=== PATIENT | female | born 1985 | race Caucasian/White ===

== ENCOUNTER 2016-09-20 16:59 | Emergency (ER) | payer MEDICAID, OTHER ==
[~2016-09-20] VITALS: Ht 147.3 cm; Wt 61.2 kg
--- NOTE | 2016-09-20 18:13 | ED EENT ---
History of Present Illness General Chief Complaint: Oral/Throat Problems Stated Complaint: TONGUE PIERCING/BLEEDING/SWELLING/PAIN Nursing Triage Note: PT REPORTS SHE GOT HER TONGUE PIERCED YESTERDAY AND IS HAVING BLEEDING AND INCREASED SWELLING AND PAIN. SHE REPORTS SHE HAS BEEN USING MOUTH WAS AND SALT WATER SWISHES DIRECTED. Source: patient Exam Limitations: no limitations History of Present Illness Time seen by provider: 17:53 Initial Comments 31-year-old female patient presents to the emergency department with complaints of swelling, bleeding, and pain of the tongue. patient reports having the tongue pierced yesterday. Timing/Duration: abrupt Location: other (tongue) Prearrival Treatment: over the counter meds (aleve at 0800 this AM) Modifying Factors: Worse With Other (no improvement with aleve) Allergies and Home Medications Allergies Coded Allergies: Penicillins (Verified Allergy, Unknown, 09/20/16) Home Medications Chlorhexidine Gluconate 473 Ml Mouthwash, 473 ML MM UD, #1 Ref 0 Prescribed by: DEBI MILAN on 09/20/16 182 Clindamycin HCl 300 Mg Capsule, 300 MG PO QID, #28 Ref 0 Prescribed by: DEBI MILAN on 09/20/16 1825 Tramadol HCl 50 Mg Tablet, 50 MG PO Q4H PRN for pain, #14 Ref 0 Prescribed by: DEBI MILAN on 09/20/165 Review of Systems Constitutional: No chills, No fever, No malaise Eyes: No Symptoms Reported Ears: No Symptoms Reported Nose: no symptoms reported Mouth: see HPI Throat: denies pain, denies swelling, denies painful swallowing, denies difficulty with fluids Respiratory: no symptoms reported Cardiovascular: no symptoms reported Skin: no symptoms reported Neurological: No Symptoms Reported All Other Systems Reviewed Negative Unless Noted: Yes (Negative excepted noted.) Past Timxdsy-Ggxoxd-Nzcska Hx Patient Social History Alcohol Use: Occasionally Uses Recreational Drug Use: No Smoking Status: Current Everyday Smoker Type Used: Cigarettes 2nd Hand Smoke Exposure: Yes Recent Foreign Travel: No Contact w/Someone Who Travel: No Recent Infectious Disease Expo: No Recent Hopitalizations: No Seasonal Allergies Seasonal Allergies: No Surgeries HX Surgeries: Yes Surgeries: Orthopedic Respiratory Hx Respiratory Disorders: No Cardiovascular Hx Cardiac Disorders: No Neurological Hx Neurological Disorders: No HEENT HX ENT Disorders: No Reviewed Nursing Assessment Reviewed/Agree w Nursing PMH: Yes Family Medical History Significant Family History: No Pertinent Family Hx Physical Exam Vital Signs Vital Sign - Last 12Hours 09/20/16 17:34 Temp 97.2 Pulse 72 Resp 16 B/P (MAP) 114/76 Pulse Ox 97 O2 Delivery Room Air General Appearance: WD/WN, no apparent distress Eyes: bilateral eye EOMI, bilateral eye PERRL, bilateral eye normal inspection Nose: normal inspection Mouth/Throat: pharynx normal, No excessive drooling, No mandibular swelling, No maxillary swelling, other (stud noted in the tongue. mild swelling and tenderness of the tongue. a small piece of tissue is attached from the tongue to the stud.) Neck: non-tender, full range of motion, supple, normal inspection Neurologic/Psychiatric: alert, normal mood/affect, oriented x 3 Skin: normal color, warm/dry Additional Procedures : Progress A small piece of tissue was removed from the piercing and tongue using forceps and suture scissors. No bleeding noted. Patient tolerated the procedure well. Progress/Results/Core Measures Results/Orders My Orders Orders - DEBI MILAN Clindamycin Capsule (Cleocin Capsule) (09/20/16 18:30) Ibuprofen Tablet (Motrin Tablet) (09/20/16 18:27) Rx-Tramadol Hcl (Rx-Ultram) (09/20/16 18:27) Vital Signs/I&O Blood Pressure Mean: 89 Departure Communication Progress Notes Patient seen and evaluated. Tissue removed from the tongue and piercing. Patient is able to swallow her own secretions without difficulty. Patient was able to take medications as well as fluids in the emergency department without difficulty. Proceed with discharge to home. Impression Impression: Primary Impression: Pierced tongue infection Disposition: 01 HOME, SELF-CARE Condition: Improved Departure-Patient Inst. Decision time for Depature: 18:12 Referrals: NO,LOCAL PHYSICIAN (PCP/Family) Primary Care Physician Patient Instructions: NO INSTRUCTIONS GIVEN Add. Discharge Instructions: All discharge instructions reviewed with patient and/or family. Voiced understanding. Medications as instructed. Soft diet. Continue good hygiene habits. Rinse mouth after each meal. Consider removing the tongue stud. Follow-up with your family practitioner for recheck in the next 1-2 days, call for appointment time tomorrow morning. Return to the emergency department for worsened pain, swelling, difficulty swallowing, fever, drainage, or any other concerns. Scripts Chlorhexidine Gluconate (Peridex) 473 Ml Mouthwash 473 ML MM UD, #1 EA 0 Refills Prov: DEBI MILAN 09/20/16 Tramadol HCl (Tramadol HCl) 50 Mg Tablet 50 MG PO Q4H Y for pain, #14 TAB 0 Refills Prov: DEBI MILAN 09/20/16 Clindamycin HCl (Clindamycin HCl) 300 Mg Capsule 300 MG PO QID, #28 CAP 0 Refills Prov: DEBI MILAN 09/20/16 Work/School Note: Local Medical Staff Listing DEBI MILAN Sep 20, 2016 18:13
[2016-09-20] MEDS ORDERED: TRAM50TA2 PO (18:25)
[2016-09-20] MEDS ORDERED: CLIN300C11 PO (18:25)
[2016-09-20] MEDS ORDERED: CHLO473M4 MM (18:25)
[2016-09-20] MEDS ORDERED: IBUPROFEN 800 MG (MOTRIN) TAB PO STA (18:27)
[2016-09-20] MEDS ORDERED: RX-TRAMADOL 50 MG (ULTRAM) TAB PPK#4 PO STA (18:27)
[2016-09-20] MEDS ORDERED: CLINDAMYCIN 150 MG (CLEOCIN) CAP PO ONE (18:30)
[2016-09-20 18:45] VITALS: BP 114/76
== END 2016-09-20 18:45 | disposition home or self-care (01) ==
LOC: ER 17:02
DX: T81.4XXA Infection following a procedure, initial encounter (principal); F17.210 Nicotine dependence, cigarettes, uncomplicated; Z98.890 Other specified postprocedural states
CPT/HCPCS: 99282; 99283

== ENCOUNTER → 2018-12-02 | Outpatient (CLI) | payer MEDICAID ==
[~2018-12-02] MED LIST: CHLO473M4 MM; CLIN300C11 PO; TRAM50TA2 PO
--- NOTE | 2018-12-02 14:43 | Diagnostic Imaging Report ---
PROCEDURE: MRI lumbar spine. TECHNIQUE: Multiplanar, multisequence MRI of the lumbar spine was performed without contrast. INDICATION: Low back pain. COMPARISON: No prior studies are available for comparison. FINDINGS: Curvature and alignment of the lumbar spine is normal. Vertebral body heights and marrow signal intensity are unremarkable. No compression fracture or geographic marrow lesion is seen. There is some loss of height and signal intensity to the L5-S1 disc, compatible with degenerative disc disease. The conus is unremarkable at the L1 level. L1-L2: Central canal and neuroforamina are widely patent. L2-L3: Central canal and neuroforamina are widely patent. L3-L4: Central canal and neuroforamina are widely patent. L4-L5: A broad-based annular bulging is seen, slightly asymmetric to the right posterolateral region. No central canal narrowing is seen but there is some [id number] narrowing of the right neuroforamen and right lateral recess. Left neuroforamen is patent. L5-S1: Broad-based disc bulging is noted, slightly asymmetric to the right. This does result in right lateral recess narrowing as well as moderate right neuroforaminal narrowing. Left neuroforamen and central canal are patent. Paraspinous tissues are unremarkable. IMPRESSION: Lower lumbar disc bulging, resulting in right lateral recess and right neuroforaminal narrowing at the L4-L5 and L5-S1 levels, as described. No central canal stenosis is detected. Dictated by: Dictated on workstation # [id number]
== END ==
LOC: RAD 13:41
PROVIDERS: ATTEND Physician Assistant
DX: Z01.419 Encounter for gynecological examination (general) (routine) without abnormal findings (principal); M51.16 Intervertebral disc disorders with radiculopathy, lumbar region; M48.07 Spinal stenosis, lumbosacral region
CPT/HCPCS: 72148

== ENCOUNTER 2019-02-07 11:46 | Emergency (ER) | payer MEDICAID ==
[~2019-02-07] VITALS: Ht 147 cm; Wt 67.9 kg
[2019-02-07] MEDS ORDERED: CYCL10TA9 (11:59)
--- NOTE | 2019-02-07 12:00 | ED Back Pain ---
General Chief Complaint: Back Problems Stated Complaint: BACK PAIN Source of Information: Patient Exam Limitations: No Limitations History of Present Illness Date Seen by Provider: Feb 07, 2019 Time Seen by Provider: 11:57 Initial Comments To ER with reports of mid thoracic back pain that began suddenly this morning when she bent forward to pickling solution maker something out of the laundry basket, she felt a popping sensation in her back. She is unable to twist or turn without severe pain in the mid back. The pain does not radiate. She is ambulatory into the emergency room. She was seen at an urgent care this morning and given a prescription for something but she hasn't filled it yet. Location: Paraspinous Muscles Timing/Duration: 1-2 Days Severity: Moderate Pain/Injury Location: Back Associated Symptoms: denies symptoms Allergies and Home Medications Allergies Coded Allergies: Penicillins (Verified Allergy, Unknown, 09/20/16) Home Medications Chlorhexidine Gluconate 473 Ml Mouthwash, 473 ML MM UD Prescribed by: DEBI MILAN on 09/20/161824 Clindamycin HCl 300 Mg Capsule, 300 MG PO QID Prescribed by: DEBI MILAN on 09/20/161824 Tramadol HCl 50 Mg Tablet, 50 MG PO Q4H PRN for pain Prescribed by: DEBI MILAN on 09/20/161824 Patient Home Medication List Home Medication List Reviewed: Yes Review of Systems Constitutional: see HPI EENTM: see HPI Respiratory: no symptoms reported Cardiovascular: no symptoms reported Genitourinary: no symptoms reported Musculoskeletal: see HPI, back pain Skin: no symptoms reported Psychiatric/Neurological: No Symptoms Reported Past Qpxqrdt-Brccok-Bybkcp Hx Patient Social History Type Used: Cigarettes 2nd Hand Smoke Exposure: Yes Recent Foreign Travel: No Contact w/Someone Who Travel: No Recent Hopitalizations: No Seasonal Allergies Seasonal Allergies: No Past Medical History Surgeries: Yes (OVARY REMOVED) Orthopedic Respiratory: No Cardiac: No Neurological: No Genitourinary: No Gastrointestinal: No Musculoskeletal: No Endocrine: No HEENT: No Cancer: No Family Medical History No Pertinent Family Hx Physical Exam Vital Signs Capillary Refill : Height, Weight, BMI Height: 4'10.00" Weight: 135lbs. oz. 61.856066xf; BMI Method:Stated General Appearance: No Apparent Distress, WD/WN HEENT: PERRL/EOMI Neck: Full Range of Motion, Normal Inspection Cardiovascular: Regular Rate, Rhythm, Normal Peripheral Pulses Respiratory: No Accessory Muscle Use, No Respiratory Distress Gastrointestinal: Normal Bowel Sounds, Non Tender, Soft Back: Normal Inspection Extremity: Normal Capillary Refill, Normal Inspection Neurologic/Psychiatric: Alert, Oriented x3 Skin: Normal Color, Warm/Dry Departure Impression Primary Impression: Back strain Qualified Codes: S39.012A - Strain of muscle, fascia and tendon of lower back, initial encounter Disposition: HOME, SELF-CARE Condition: Improved Departure-Patient Inst. Decision time for Depature: 11:59 Referrals: NO,LOCAL PHYSICIAN (PCP/Family) Primary Care Physician Patient Instructions: Muscle Strain (DC) Add. Discharge Instructions: 1. Use heat to the back. Continue the anti-inflammatories like ibuprofen, muscle relaxer as directed. Follow-up with your doctor if no pain relief by the end of this week. All discharge instructions reviewed with patient and/or family. Voiced understanding. Work/School Note: Work Release Form Date Seen in the Emergency Department: Feb 07, 2019 Return to Work: Feb 09, 2019 PEYMAN DE LA FUENTE APRN Feb 07, 2019 12:00
[2019-02-07 12:03] VITALS: BP 131/83
== END 2019-02-07 12:03 | disposition home or self-care (01) ==
LOC: EDUNIT# 11:46 → ER 11:47
DX: S39.012A Strain of muscle, fascia and tendon of lower back, initial encounter (principal); Z88.0 Allergy status to penicillin; Z77.22 Contact with and (suspected) exposure to environmental tobacco smoke (acute) (chronic); X50.1XXA Overexertion from prolonged static or awkward postures, initial encounter
CPT/HCPCS: 99281

== ENCOUNTER 2019-07-06 14:39 | Emergency (ER) | payer MEDICAID ==
[~2019-07-06] VITALS: Ht 157 cm; Wt 85.0 kg
[~2019-07-06 14:39] MED LIST changes: +CYCL10TA9; -TRAM50TA2 PO; +TRM50T PO
--- NOTE | 2019-07-06 15:06 | ED EENT ---
History of Present Illness General Chief Complaint: Dental Problems/Pain Stated Complaint: DENTAL PAIN Nursing Triage Note: THE PT IS AMBULATORY TO THE ROOM WITHOUT DIFFICULTY. NO DISTRESS IS SEEN ON ARRIVAL. LOC IS NORMAL FOR THE PT. THE PT JUST LEFT HER DENTIST OFFICE. C/O DENTAL PAIN. Source: patient Exam Limitations: no limitations History of Present Illness Date Seen by Provider: July 06, 2019 Time Seen by Provider: 15:04 Initial Comments 34-year-old female who presents to the emergency room with complaints of right lower dental pain. She has been seen by her dentist for this issue for quite some time and has tried azithromycin and Bactrim for a dental abscess without improvement. She reports being seen by her dentist this morning and he is in the process of referring her to [place] to oral surgeon. She reports increasing pain today. Timing/Duration: this morning Associated Symptoms: facial pain/swelling Allergies and Home Medications Allergies Coded Allergies: Penicillins (Verified Allergy, Unknown, 09/20/16) Patient Home Medication List Home Medication List Reviewed: Yes Review of Systems Review of Systems Constitutional: see HPI; No chills, No fever Mouth: see HPI, pain (dental), swelling All Other Systems Reviewed Negative Unless Noted: Yes Past Upjiqeo-Mqxpro-Nuasga Hx Past Med/Social Hx: Reviewed Nursing Past Med/Soc Hx Patient Social History Type Used: Cigarettes 2nd Hand Smoke Exposure: Yes Recent Foreign Travel: No Contact w/Someone Who Travel: No Recent Infectious Disease Expo: No Recent Hopitalizations: No Seasonal Allergies Seasonal Allergies: No Past Medical History Surgeries: Yes (OVARY REMOVED) Orthopedic Respiratory: No Cardiac: No Neurological: No Genitourinary: No Gastrointestinal: No Musculoskeletal: No Endocrine: No HEENT: No Cancer: No Family Medical History Reviewed Nursing Family Hx No Pertinent Family Hx Physical Exam Vital Signs Vital Signs - First Documented 07/06/19 14:59 Temp 37.4 Pulse 97 Resp 16 B/P (MAP) 152/100 (117) Pulse Ox 97 Height, Weight, BMI Height: 4'10.00" Weight: 135lbs. oz. 61.913455qg; 34.00 BMI Method:Stated General Appearance: WD/WN, no apparent distress Mouth/Throat: other (facial swelling to the right lower jaw. 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 Decision time for Depature: 15:09 Referrals: [facility] (PCP) Primary Care Physician JULITO PARTIDA (Family) Primary Care Physician Patient Instructions: Tooth Abscess (DC) Add. Discharge Instructions: Take medications as directed. Call your dentist to schedule follow-up appointment time. Return back to the emergency room for worsening symptoms or concerns as needed. All discharge instructions reviewed with patient and/or family. Voiced understanding. Scripts Hydrocodone Bit/Acetaminophen (HYDROcodone/APAP 7.5/325 TAB) 1 Ea Tablet 1 EA PO Q6H for 7 Days, #14 TAB Prov: СЕРГЕЙ BOLAND 07/06/19 Clindamycin HCl (Clindamycin HCl) 300 Mg Capsule 300 MG PO TID for 7 Days, #21 CAP Prov: СЕРГЕЙ BOLAND 07/06/19 Images Mouth/Nose 1 - Swelling, Tenderness СЕРГЕЙ BOLAND July 06, 2019 15:06
[2019-07-06] MEDS ORDERED: CLIN300C11 PO (15:12)
[2019-07-06] MEDS ORDERED: HYDR-34 PO (15:12)
[2019-07-06 15:15] VITALS: BP 150/100
== END 2019-07-06 15:15 | disposition home or self-care (01) ==
LOC: EDUNIT# 14:39 → ER 14:40
DX: K04.7 Periapical abscess without sinus (principal); Z88.0 Allergy status to penicillin; Z77.22 Contact with and (suspected) exposure to environmental tobacco smoke (acute) (chronic)
CPT/HCPCS: 99282

== ENCOUNTER 2020-09-13 16:44 | Emergency (ER) | payer MEDICAID ==
[~2020-09-13] VITALS: Ht 147.3 cm; Wt 65.0 kg
[~2020-09-13 16:44] MED LIST changes: -CLIN300C11 PO; +CLIN300C12 PO; +HYDR-34 PO
--- NOTE | 2020-09-13 17:04 | ED Upper Extremity ---
General Chief Complaint: Upper Extremity Stated Complaint: R ARM SWELLING/PAIN Source: patient Exam Limitations: no limitations History of Present Illness Date Seen by Provider: Sep 13, 2020 Time Seen by Provider: 17:02 Initial Comments To ER with right arm swelling and pain. This began yesterday after leaving work. No known injury. No fevers or chills. Pain is worsened by extending the wrist. History of radius and ulna fracture at the age of 14 with subsequent fasciotomy. These incisions are well-healed and there is some faint erythema to the dorsal aspect ulnar side of the arm. Onset: yesterday Severity: moderate Pain/Injury Location: right forearm Method of Injury: unknown Modifying Factors: Worse With Movement Allergies and Home Medications Allergies Coded Allergies: Penicillins (Verified Allergy, Unknown, 09/20/16) Home Medications Clindamycin HCl 300 Mg Capsule, 300 MG PO TID Prescribed by: СЕРГЕЙ BOLAND on 07/06/191511 Hydrocodone Bit/Acetaminophen 1 Ea Tablet, 1 EA PO Q6H Prescribed by: СЕРГЕЙ BOLAND on 07/06/191511 Patient Home Medication List Home Medication List Reviewed: Yes Review of Systems Constitutional: see HPI; No chills, No fever EENTM: see HPI Respiratory: no symptoms reported Cardiovascular: no symptoms reported Genitourinary: no symptoms reported Musculoskeletal: see HPI Skin: no symptoms reported Psychiatric/Neurological: No Symptoms Reported Past Aldneac-Jdqruz-Ponmht Hx Patient Social History Tobacco Use?: No Use of E-Cig and/or Vaping dev: No Substance use?: No Alcohol Use?: No Pt feels they are or have been: No Immunizations Up To Date Influenza Vaccine Up-to-Date: No; Not Current Seasonal Allergies Seasonal Allergies: No Past Medical History Surgeries: Yes (OVARY REMOVED) Orthopedic Respiratory: No Cardiac: No Neurological: No Genitourinary: No Gastrointestinal: No Musculoskeletal: No Endocrine: No HEENT: No Cancer: No Family Medical History No Pertinent Family Hx Physical Exam Vital Signs Vital Signs - First Documented 09/13/20 16:55 Temp 36.1 Pulse 92 Resp 20 B/P (MAP) 139/90 (106) Pulse Ox 96 O2 Delivery Room Air Capillary Refill : Height, Weight, BMI Height: 4'10.00" Weight: 135lbs. oz. 61.954245ks; 34.00 BMI Method:Stated General Appearance: WD/WN, no apparent distress HEENT: PERRL/EOMI, normal ENT inspection Neck: non-tender, full range of motion Respiratory: normal breath sounds, no respiratory distress, no accessory muscle use Shoulder: normal inspection, non-tender Elbow/Forearm: pain, swelling (The right forearm is slightly erythematous, mild obviously swollen. This is confined to the area from the elbow to the mid forearm.) Wrist: Yes normal inspection, Yes non-tender Hand: normal inspection, non-tender Neurologic/Psychiatric: alert, normal mood/affect, oriented x 3 Skin: normal color, warm/dry Progress/Results/Core Measures Results/Orders Lab Results Laboratory Tests Test 09/13/20 17:15 Range/Units White Blood Count 8.1 4.3-11.0 10^3/uL Red Blood Count 4.77 3.80-5.11 10^6/uL Hemoglobin 15.1 11.5-16.0 g/dL Hematocrit 43 35-52 % Mean Corpuscular Volume 90 80-99 fL Mean Corpuscular Hemoglobin 32 25-34 pg Mean Corpuscular Hemoglobin Concent 35 32-36 g/dL Red Cell Distribution Width 12.3 10.0-14.5 % Platelet Count 315 130-400 10^3/uL Mean Platelet Volume 10.3 9.0-12.2 fL Immature Granulocyte % (Auto) 2 % Neutrophils (%) (Auto) 59 42-75 % Lymphocytes (%) (Auto) 31 12-44 % Monocytes (%) (Auto) 7 0-12 % Eosinophils (%) (Auto) 1 0-10 % Basophils (%) (Auto) 1 0-10 % Neutrophils # (Auto) 4.7 1.8-7.8 10^3/uL Lymphocytes # (Auto) 2.5 1.0-4.0 10^3/uL Monocytes # (Auto) 0.6 0.0-1.0 10^3/uL Eosinophils # (Auto) 0.1 0.0-0.3 10^3/uL Basophils # (Auto) 0.1 0.0-0.1 10^3/uL Immature Granulocyte # (Auto) 0.2 H 0.0-0.1 10^3/uL D-Dimer 0.64 H 0.00-0.49 UG/ML Sodium Level 142 135-145 MMOL/L Potassium Level 3.9 3.6-5.0 MMOL/L Chloride Level 105 98-107 MMOL/L Carbon Dioxide Level 23 21-32 MMOL/L Anion Gap 14 5-14 MMOL/L Blood Urea Nitrogen 8 7-18 MG/DL Creatinine 0.73 0.60-1.30 MG/DL Estimat Glomerular Filtration Rate 91 BUN/Creatinine Ratio 11 Glucose Level 87 70-105 MG/DL Calcium Level 9.5 8.5-10.1 MG/DL C-Reactive Protein High Sensitivity 0.23 0.00-0.50 MG/DL Serum Test, Qualitative NEGATIVE NEGATIVE My Orders Orders - PEYMAN DE LA FUENTE APRN Cbc With Automated Diff (09/13/20 17:01) Hs C Reactive Protein (09/13/20 17:01) Fibrin Degradation Products (09/13/20 17:01) Basic Metabolic Panel (09/13/20 17:01) Hcg,Qualitative Serum (09/13/20 17:01) Forearm, Right, 2 Views (09/13/20 17:15) Procalcitonin (Pct) (09/13/20 17:25) Vital Signs/I&O 09/13/20 16:55 Temp 36.1 Pulse 92 Resp 20 B/P (MAP) 139/90 (106) Pulse Ox 96 O2 Delivery Room Air Departure Communication (Admissions) Right upper extremity is little swollen and erythematous. I will give her some empiric antibiotics. Inflammatory markers are normal. She would be more predisposed to a cellulitis given the impaired lymphatic drainage status post fasciotomy many years ago. I will give her a dose of Rocephin here then home with some Keflex. Because her elevated D-dimer this does warrant ultrasound evaluation. That is not able to be performed tonight so she will come back tomorrow to have this done outpatient at 9am Impression Primary Impression: Pain and swelling of right upper extremity Disposition: HOME, SELF-CARE Condition: Stable Departure-Patient Inst. Decision time for Depature: 18:06 Referrals: [facility] (PCP) Primary Care Physician JULITO PARTIDA (Family) Primary Care Physician Patient Instructions: NO INSTRUCTIONS GIVEN Add. Discharge Instructions: The cause of your swelling to the right upper extremity is likely cellulitis, an infectious process which you are more prone to because of the impaired lymphatic drainage after your fasciotomy surgery many years ago. We will do antibiotics. Take your pain medication at home as needed. Try to keep the arm straight at the elbow and elevated as much as possible. Return tomorrow at 9 AM for an ultrasound of the upper arm to make sure there is no clot within the deep veins. All discharge instructions reviewed with patient and/or family. Voiced understanding. Scripts Cephalexin (Cephalexin) 500 Mg Tablet 500 MG PO QID, #28 TAB Prov: PEYMAN DE LA FUENTE APRN 09/13/20 PEYMAN DE LA FUENTE APRN Sep 13, 2020 17:04
[2020-09-13 17:21] LABS: BASOPHILS # (AUTO) 0.1 10^3/uL (0.0-0.1); BASOPHILS % (AUTO) 1 % (0-10); EOSINOPHILS # (AUTO) 0.1 10^3/uL (0.0-0.3); EOSINOPHILS % (AUTO) 1 % (0-10); HEMATOCRIT 43 % (35-52); HEMOGLOBIN 15.1 g/dL (11.5-16.0); LYMPHOCYTES # (AUTO) 2.5 10^3/uL (1.0-4.0); LYMPHOCYTES % (AUTO) 31 % (12-44); MEAN CORPUSCULAR HEMOGLOBIN 32 pg (25-34); MEAN CORPUSCULAR HGB CONC 35 g/dL (32-36); MEAN CORPUSCULAR VOLUME 90 fL (80-99); MEAN PLATELET VOLUME 10.3 fL (9.0-12.2); MONOCYTES # (AUTO) 0.6 10^3/uL (0.0-1.0); MONOCYTES % (AUTO) 7 % (0-12); NEUTROPHILS # (AUTO) 4.7 10^3/uL (1.8-7.8); NEUTROPHILS % (AUTO) 59 % (42-75); PLATELET COUNT 315 10^3/uL (130-400); WHITE BLOOD COUNT 8.1 10^3/uL (4.3-11.0)
[2020-09-13 17:33] LABS: POTASSIUM 3.9 MMOL/L (3.6-5.0)
[2020-09-13 17:34] LABS: CALCIUM 9.5 MG/DL (8.5-10.1)
[2020-09-13 17:38] LABS: CREATININE SERUM 0.73 MG/DL (0.60-1.30)
--- NOTE | 2020-09-13 17:41 | Diagnostic Imaging Report ---
INDICATION: Right forearm pain. EXAMINATION: AP and lateral views of the right forearm were obtained. COMPARISON: No previous study is available at this time for comparison. Internally fixed fractures involving the radial and ulnar diaphyses are noted. There is no evidence of malalignment or persistent fracture line. No acute fracture or arthritic hardware complication is identified. IMPRESSION: Internally fixed and healed fractures of radius and ulna without acute abnormality detected. Dictated by: Dictated on workstation # [id number]
[2020-09-13] MEDS ORDERED: CEPH500T PO (18:09)
[2020-09-13] MEDS ORDERED: cefTRIAXone 1,000 MG in WATER (STERILE) FOR INJECTION 10 ML IV ONE (18:15)
[2020-09-13 18:27] VITALS: BP 129/96
== END 2020-09-13 18:27 | disposition home or self-care (01) ==
LOC: EDUNIT# 16:44 → ER 16:46
DX: M79.621 Pain in right upper arm (principal)
CPT/HCPCS: 36415; 73090; 80048; 84145; 84703; 85025; 85379; 86141

== ENCOUNTER → 2020-09-14 | Outpatient (CLI) | payer MEDICAID ==
[~2020-09-14] MED LIST changes: +CEPH500T PO
--- NOTE | 2020-09-14 11:08 | Diagnostic Imaging Report ---
INDICATION: Elevated D-dimer and right upper extremity swelling Grayscale and color Doppler evaluation of right upper extremity deep veins reveal no intraluminal filling defect. There is normal venous flow. There is normal compressibility and response to augmentation. IMPRESSION: No ultrasound evidence of right upper extremity deep venous thrombosis. Dictated by: Dictated on workstation # [id number]
== END ==
LOC: RAD 08:54
PROVIDERS: ATTEND Emergency Medicine
DX: R22.31 Localized swelling, mass and lump, right upper limb (principal); R79.1 Abnormal coagulation profile

== ENCOUNTER 2020-09-23 18:19 | Emergency (ER) | payer MEDICAID ==
[~2020-09-23] VITALS: Ht 147 cm; Wt 70.3 kg
--- NOTE | 2020-09-23 18:42 | ED Back Pain ---
General Chief Complaint: Back Problems Stated Complaint: BACK PAIN Nursing Triage Note: PT BROUGHT TO ER VIA WHEELCHAIR WITH C/O LOWER BACK PAIN. PT STATES THIS PAIN BEGAN WHILE SHE WAS LYING IN BED THIS AFTERNOON AROUND 16:30. PATIENT STATES THE PAIN IS IN THE LOWER SPINAL REGION AND RADIATES INTO THE RIGHT LOWER LEG WITH MOVEMENT AND WALKING. PT DOES GET BACK INJECTIONS AND LAST INJECTIONS WERE July AND July. PT SEES PAIN MANAGEMENT IN [place] Source of Information: Patient Exam Limitations: No Limitations History of Present Illness Date Seen by Provider: Sep 23, 2020 Time Seen by Provider: 18:28 Initial Comments Patient is a 35-year-old female who presents to the emergency department with a chief complaint of upper lumbar back pain. Patient states that she was just sitting at rest when she had sudden onset of back pain that feels like a "pressure". She states she had urinated at about 415 and this was normal. She denies dysuria, urgency or frequency. No loss of bowel or bladder function. She is not urinated since the onset of pain. Patient states that she takes daily ibuprofen 400 mg twice daily for chronic pain and follows with a pain management clinic in [facility]. She denies any numbness tingling or weakness in her lower extremities. She states the pain radiates down into the proximal right upper thigh and the posterior aspect of the thigh. She denies any fevers, chills no URI symptoms. No abdominal pain. She has a tubal ligation and just started her menstrual cycle today. Movement and walking make the pain worse. Last dose of ibuprofen was this morning at about 730. She did have steroid injections to her back on July 15 and July 29. No problems with those injections. All other review of systems reviewed and negative except as stated. Timing/Duration: 1-3 Hours Severity: Severe Pain/Injury Location: Back Radiation: Buttocks (right) Method of Injury: Unknown Modifying Factors: Worse With Movement Associated Symptoms: No numbness in legs/feet, No tingling in legs/feet, No sensory/motor loss; lower back pain; No loss of bladder control, No loss of bowel control Allergies and Home Medications Allergies Coded Allergies: Penicillins (Verified Allergy, Unknown, 09/20/16) Home Medications Cephalexin 500 Mg Tablet, 500 MG PO QID Prescribed by: PEYMAN DE LA FUENTE on 09/13/20 045 Clindamycin HCl 300 Mg Capsule, 300 MG PO TID Prescribed by: СЕРГЕЙ BOLAND on 07/06/191511 Hydrocodone Bit/Acetaminophen 1 Ea Tablet, 1 EA PO Q6H Prescribed by: СЕРГЕЙ BOLAND on 07/06/191511 Patient Home Medication List Home Medication List Reviewed: Yes Review of Systems Constitutional: see HPI Respiratory: no symptoms reported Cardiovascular: no symptoms reported Gastrointestinal: no symptoms reported Genitourinary: no symptoms reported : No LMP: Sep 23, 2020 Control/STD Prophylaxis: None Musculoskeletal: back pain, muscle pain ("pressure") Skin: no symptoms reported Psychiatric/Neurological: Denies Paresthesia, Denies Weakness All Other Systems Reviewed Negative Unless Noted: Yes Past Xpgpfmu-Cxgkez-Vkircs Hx Seasonal Allergies Seasonal Allergies: No Past Medical History Surgeries: Yes (OVARY REMOVED) Orthopedic Respiratory: No Cardiac: No Neurological: No Genitourinary: No Gastrointestinal: No Musculoskeletal: No Endocrine: No HEENT: No Cancer: No Family Medical History No Pertinent Family Hx Physical Exam Vital Signs Vital Signs - First Documented 09/23/20 18:27 Temp 36.1 Pulse 98 Resp 24 B/P (MAP) 133/98 (110) Pulse Ox 96 O2 Delivery Room Air Capillary Refill : Less Than 3 Seconds Height, Weight, BMI Height: 4'10.00" Weight: 135lbs. oz. 61.288821pr; 32.00 BMI Method:Stated General Appearance: WD/WN, Anxious, Moderate Distress Neck: Normal Inspection Cardiovascular: Regular Rate, Rhythm Respiratory: Lungs Clear, Normal Breath Sounds, No Accessory Muscle Use, No Respiratory Distress Gastrointestinal: Non Tender, Soft Back: Normal Inspection, No CVA Tenderness, Vertebral Tenderness (approximately T12 to L2-3) Extremity: Normal Capillary Refill, Normal Inspection, Normal Range of Motion, Non Tender, No Calf Tenderness Neurologic/Psychiatric: Alert, Oriented x3, No Motor/Sensory Deficits, Depressed Affect (tearful and crying) Skin: Normal Color, Warm/Dry Progress/Results/Core Measures Results/Orders My Orders Orders - BILL MALDONADO MD Ketorolac Injection (Toradol Injection) (09/23/20 18:45) Orphenadrine Inj (Ed Only) (Norflex Inje (09/23/20 18:45) Hydrocodone/Apap 5/325 Tablet (Lortab 5 (09/23/20 18:45) Prednisone Tablet (Deltasone Tablet) (09/23/20 19:45) Medications Given in ED Current Medications Medications Dose Ordered Sig/Lotus Route Start Time Stop Time Status Last Admin Dose Admin Acetaminophen/ Hydrocodone Bitart 1 ea ONCE ONCE PO 09/23/20 18:45 09/23/20 18:46 DC 09/23/20 18:42 1 EA Ketorolac Tromethamine 60 mg ONCE ONCE IM 09/23/20 18:45 09/23/20 18:46 DC 09/23/20 18:46 60 MG Orphenadrine Citrate 60 mg ONCE ONCE IM 09/23/20 18:45 09/23/20 18:46 DC 09/23/20 18:45 60 MG Vital Signs/I&O 09/23/20 18:27 Temp 36.1 Pulse 98 Resp 24 B/P (MAP) 133/98 (110) Pulse Ox 96 O2 Delivery Room Air Blood Pressure Mean: 110 Progress Progress Note : Time: 18:31 Progress Note Patient is feeling better after medications. We will put her on 50 mg of prednisone daily for 5 days. I have advised her to use a heating pad to her low back. Pain medications and a short course of muscle relaxers will be sent to her [facility] pharmacy. Patient is strongly encouraged to follow-up with her pain management clinic in [facility] as well as her primary care doctor at [facility]. She verbalized understanding of her discharge instructions is comfortable with plan of care. All questions were sought and answered. Patient is stable for discharge. Departure Impression Primary Impression: Low back pain Qualified Codes: M54.41 - Lumbago with sciatica, right side Disposition: 01 HOME, SELF-CARE Condition: Improved Departure-Patient Inst. Decision time for Depature: 19:32 Referrals: [facility] (PCP) Primary Care Physician JULITO PARTIDA (Family) Primary Care Physician Patient Instructions: Low Back Pain in Adults Add. Discharge Instructions: Use a heating pad to the sore areas of your back over the next 2 to 3 days. Take the prednisone/steroid daily as directed. Use the pain medications and muscle relaxers as needed for severe pain and spasm. Follow-up with your pain management clinic as well as your primary care physician. Come back to the emergency room for any worsening pain especially associated with leg weakness, numbness, loss of bowel or bladder function or any other emergent concerning symptoms. Scripts Prednisone (Prednisone) 50 Mg Tab 50 MG PO DAILY, #4 TAB Prov: BILL MALDONADO MD 09/23/20 Cyclobenzaprine HCl (Cyclobenzaprine HCl) 10 Mg Tablet 10 MG PO Q8H for Spasms, #9 TAB Prov: BILL MALDONADO MD 09/23/20 Hydrocodone/Acetaminophen (Hydrocodone-Acetamin 5-325 mg) 1 Each Tablet 1 TAB PO Q6H PRN for PAIN-MODERATE (5-7), #8 TAB Prov: BILL MALDONADO MD 09/23/20 BILL MALDONADO MD Sep 23, 2020 18:42
[2020-09-23] MEDS ORDERED: ORPHENADRINE 60 MG/2 ML (NORFLEX) AMP (ED ONLY) IM ONE (18:45)
[2020-09-23] MEDS ORDERED: KETOROLAC 60 MG/2 ML VIAL IM ONE (18:45)
[2020-09-23] MEDS ORDERED: HYDROcodone/APAP 5 MG/325 MG (LORTAB) TAB PO ONE (18:45)
[2020-09-23] MEDS ORDERED: CYCL10TA9 PO (19:34)
[2020-09-23] MEDS ORDERED: ACHD5005 PO (19:34)
[2020-09-23] MEDS ORDERED: PRD50T PO (19:34)
[2020-09-23 19:41] VITALS: BP 125/84
[2020-09-23] MEDS ORDERED: predniSONE 20 MG TAB PO ONE (19:45)
== END 2020-09-23 19:41 | disposition home or self-care (01) ==
LOC: EDUNIT# 18:19 → ER 18:20
DX: G89.29 Other chronic pain (principal); M54.5 Low back pain; Z79.891 Long term (current) use of opiate analgesic
CPT/HCPCS: 96372; 99284

== ENCOUNTER → 2020-10-02 | Outpatient (CLI) | payer MEDICAID ==
[~2020-10-02] MED LIST changes: +ACHD5005 PO; +CYCL10TA9 PO; +PRD50T PO
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
== END ==
LOC: RAD 13:15
PROVIDERS: ATTEND Nurse Practitioner
DX: M48.56XA Collapsed vertebra, not elsewhere classified, lumbar region, initial encounter for fracture (principal); M51.27 Other intervertebral disc displacement, lumbosacral region; M51.16 Intervertebral disc disorders with radiculopathy, lumbar region; M48.061 Spinal stenosis, lumbar region without neurogenic claudication
CPT/HCPCS: 72148

== ENCOUNTER 2021-01-22 10:46 | Outpatient (RCR) | payer MEDICAID ==
[~2021-01-22 10:46] MED LIST changes: +CLIN-144 PO; -CLIN300C12 PO; +CYCL10TA25; +CYCL10TA25 PO; -CYCL10TA9; -CYCL10TA9 PO
== END 2021-02-07 | disposition home or self-care (01) ==
PROVIDERS: ATTEND Nurse Practitioner Family
DX: Z98.890 Other specified postprocedural states (principal)

== ENCOUNTER 2021-12-30 16:26 | Emergency (ER) | payer MEDICAID ==
[~2021-12-30] VITALS: Ht 147 cm; Wt 70.0 kg
[2021-12-30] MEDS ORDERED: LACTATED RINGERS 1,000 ML IV STA (16:39)
[2021-12-30] MEDS ORDERED: KETOROLAC 30 MG/ML VIAL IVP ONE (16:45)
--- NOTE | 2021-12-30 16:48 | ED Fever ---
History of Present Illness General Chief Complaint: Fever-Adult/Adol Stated Complaint: HIGH FEVER,COUGH,CHEST PAIN Nursing Triage Note: FEVER, SORE THROAT AND COUGH STARTING TODAY. Source: patient Exam Limitations: no limitations History of Present Illness Date Seen by Provider: Dec 30, 2021 Time Seen by Provider: 16:29 Initial Comments 36-year-old female with no pertinent past medical history coming in due to 1 day of fever, cough, body aches. Has been taking Tylenol intermittently with the last dose roughly 2 hours ago. Drinking slightly less today, but tolerating p.o. Denies any nausea, vomiting, diarrhea, abdominal pain, focal weakness or numbness, neck stiffness, or any other concerns. Allergies and Home Medications Allergies Coded Allergies: Penicillins (Verified Allergy, Unknown, 09/20/16) Patient Home Medication List Home Medication List Reviewed: Yes Discontinued Medications Cephalexin (Cephalexin) 500 Mg Tablet, 500 MG PO QID Discontinued Reason: No Longer Taking Prescribed by: PEYMAN DE LA FUENTE on 09/13/20 1809 Last Action: Discontinued Clindamycin HCl (Clindamycin HCl) 300 Mg Capsule, 300 MG PO TID Discontinued Reason: No Longer Taking Prescribed by: СЕРГЕЙ BOLAND on 07/06/191511 Last Action: Discontinued Cyclobenzaprine HCl (Cyclobenzaprine HCl) 10 Mg Tablet, (Reported) Discontinued Reason: No Longer Taking Entered as Reported by: VASQUEZ WILLIAM on 02/07/19 1159 Last Action: Discontinued Cyclobenzaprine HCl (Cyclobenzaprine HCl) 10 Mg Tablet, 10 MG PO Q8H Discontinued Reason: No Longer Taking Prescribed by: BILL MALDONADO on 09/23/201933 Last Action: Discontinued Hydrocodone Bit/Acetaminophen (HYDROcodone/APAP 7.5/325 TAB) 1 Ea Tablet, 1 EA PO Q6H Discontinued Reason: No Longer Taking Prescribed by: СЕРГЕЙ BOLAND on 07/06/19 151 Last Action: Discontinued Hydrocodone/Acetaminophen (Hydrocodone-Acetamin 5-325 mg) 1 Each Tablet, 1 TAB PO Q6H PRN for PAIN-MODERATE (5-7) Discontinued Reason: No Longer Taking Prescribed by: BILL MALDONADO on 09/23/201933 Last Action: Discontinued Prednisone (Prednisone) 50 Mg Tab, 50 MG PO DAILY Discontinued Reason: No Longer Taking Prescribed by: BILL MALDONADO on 09/23/201933 Last Action: Discontinued Review of Systems Review of Systems Constitutional: see HPI EENTM: No nose congestion Respiratory: cough Cardiovascular: no symptoms reported Gastrointestinal: no symptoms reported Genitourinary: no symptoms reported Musculoskeletal: no symptoms reported Skin: no symptoms reported Psychiatric/Neurological: No Symptoms Reported Hematologic/Lymphatic: No Symptoms Reported Immunological/Allergic: no symptoms reported All Other Systems Reviewed Negative Unless Noted: Yes Past Cumqtyo-Xxbahd-Vuqhyl Hx Patient Social History Tobacco Use?: No Substance use?: No Alcohol Use?: No Seasonal Allergies Seasonal Allergies: No Past Medical History Surgery/Hospitalization HX: RIGHT AND LEFT ARM REPAIR, FACIAL SURGERY Surgeries: Yes (OVARY REMOVED) Orthopedic Respiratory: No Cardiac: No Neurological: No Genitourinary: No Gastrointestinal: No Musculoskeletal: No Endocrine: No HEENT: No Cancer: No Family Medical History No Pertinent Family Hx Physical Exam Vital Signs - First Documented 12/30/21 16:34 Temp 38.9 Pulse 115 Resp 16 B/P (MAP) 144/94 (111) Pulse Ox 96 O2 Delivery Room Air Capillary Refill : Less Than 3 Seconds Height: 4'10.00" Weight: 135lbs. oz. 61.458816lv; 32.00 BMI Method:Stated General Appearance: WD/WN, other (Ill but not toxic) Eyes: Bilateral Eye Normal Inspection HEENT: PERRL/EOMI, normal ENT inspection, pharynx normal Neck: non-tender, full range of motion, supple, normal inspection, other (No meningismus) Respiratory: chest non-tender, lungs clear, normal breath sounds, no respiratory distress, no accessory muscle use Cardiovascular: no edema, no murmur, tachycardia Gastrointestinal: normal bowel sounds, non tender, soft; No distended, No guarding, No rebound Extremities: normal range of motion, non-tender, normal inspection, no pedal edema, no calf tenderness, normal capillary refill Neurologic/Psychiatric: no motor/sensory deficits, alert, normal mood/affect Skin: normal color, warm/dry Lymphatic: no adenopathy Progress/Results/Core Measures Suspected Sepsis SIRS Temperature: Pulse: 115 Respiratory Rate: 16 Laboratory Tests 12/30/21 16:40: White Blood Count 8.6 Blood Pressure 144 /94 Mean: 111 Laboratory Tests 12/30/21 16:40: Creatinine 0.76, Platelet Count 292, Total Bilirubin 0.5 Results/Orders Lab Results Laboratory Tests Test 12/30/21 16:40 Range/Units White Blood Count 8.6 4.3-11.0 10^3/uL Red Blood Count 4.57 3.80-5.11 10^6/uL Hemoglobin 13.8 11.5-16.0 g/dL Hematocrit 40 35-52 % Mean Corpuscular Volume 86 80-99 fL Mean Corpuscular Hemoglobin 30 25-34 pg Mean Corpuscular Hemoglobin Concent 35 32-36 g/dL Red Cell Distribution Width 12.6 10.0-14.5 % Platelet Count 292 130-400 10^3/uL Mean Platelet Volume 10.5 9.0-12.2 fL Immature Granulocyte % (Auto) 1 % Neutrophils (%) (Auto) 88 H 42-75 % Lymphocytes (%) (Auto) 5 L 12-44 % Monocytes (%) (Auto) 6 0-12 % Eosinophils (%) (Auto) 0 0-10 % Basophils (%) (Auto) 1 0-10 % Neutrophils # (Auto) 7.5 1.8-7.8 10^3/uL Lymphocytes # (Auto) 0.4 L 1.0-4.0 10^3/uL Monocytes # (Auto) 0.5 0.0-1.0 10^3/uL Eosinophils # (Auto) 0.0 0.0-0.3 10^3/uL Basophils # (Auto) 0.0 0.0-0.1 10^3/uL Immature Granulocyte # (Auto) 0.1 0.0-0.1 10^3/uL Neutrophils % (Manual) 86 % Lymphocytes % (Manual) 4 % Monocytes % (Manual) 9 % Eosinophils % (Manual) 1 % Blood Morphology Comment NORMAL Sodium Level 138 135-145 MMOL/L Potassium Level 3.6 3.6-5.0 MMOL/L Chloride Level 107 98-107 MMOL/L Carbon Dioxide Level 20 L 21-32 MMOL/L Anion Gap 11 5-14 MMOL/L Blood Urea Nitrogen 8 7-18 MG/DL Creatinine 0.76 0.60-1.30 MG/DL Estimat Glomerular Filtration Rate 104 BUN/Creatinine Ratio 11 Glucose Level 101 70-105 MG/DL Calcium Level 9.3 8.5-10.1 MG/DL Corrected Calcium 9.1 8.5-10.1 MG/DL Total Bilirubin 0.5 0.1-1.0 MG/DL Aspartate Amino Transf (AST/SGOT) 28 5-34 U/L Alanine Aminotransferase (ALT/SGPT) 25 0-55 U/L Alkaline Phosphatase 75 40-136 U/L Troponin I < 0.028 <0.028 NG/ML Total Protein 7.5 6.4-8.2 GM/DL Albumin 4.3 3.2-4.5 GM/DL Influenza Type A (RT-PCR) Detected H Not Detecte Influenza Type B (RT-PCR) Not Detected Not Detecte SARS-CoV-2 RNA (RT-PCR) Not Detected Not Detecte My Orders Orders - LIZETH SPENCER MD Ekg Tracing (12/30/21 16:39) Ketorolac Injection (Toradol Injection) (12/30/21 16:45) Lactated Ringers (Lr 1000 Ml Iv Solution (12/30/21 16:39) Cbc With Automated Diff (12/30/21 16:39) Comprehensive Metabolic Panel (12/30/21 16:39) Troponin I Mobile (12/30/21 16:39) Influenza A And B By Pcr (12/30/21 16:39) Ekg Tracing (12/30/21 16:39) Chest 1 View, Ap/Pa Only (12/30/21 16:39) Covid 19 Inhouse Test (12/30/21 16:39) Manual Differential (12/30/21 16:40) Medications Given in ED Vital Signs/I&O 12/30/21 12/30/21 16:34 18:30 Temp 38.9 38.9 Pulse 115 117 Resp 16 16 B/P (MAP) 144/94 (111) 117/76 Pulse Ox 96 97 O2 Delivery Room Air Room Air Capillary Refill : Less Than 3 Seconds Blood Pressure Mean: 111 Progress Note : Progress Note 36yoF with above history coming in mostly due to fever. Patient was febrile and tachycardic on presentation. An IV was placed and she was given a bolus of IV fluids as well as Toradol for pain and fever. Influenza A test is positive, white blood cell count normal, creatinine normal. Chest x-ray with no acute abnormalities. On reassessment she is better appearing. I believe she stable for discharge with outpatient follow-up. She was sent home with strict return precautions. ECG Initial ECG Impression Date: Dec 30, 2021 Initial ECG Impression Time: 16:43 Initial ECG Rate: 130 Initial ECG Rhythm: S.Tach Comment Narrow QRS, normal axis, no significant ST changes or T wave abnormalities Diagnostic Imaging Diagonstic Imaging: Xray Plain Films/CT/US/NM/MRI: chest Comments [facility], [place] NAME: ANURAG FRANCIS [facility] REC#: [id number] PT STATUS: REG ER : 1985 PHYSICIAN: LIZETH SPENCER MD ADMIT DATE: 12/30/21/ER Draft Date of Exam:12/30/21 CHEST 1 VIEW, AP/PA ONLY INDICATION: Fever and sore throat as well as cough. TIME OF EXAM: 4:53 p.m. No prior studies are available for comparison. FINDINGS: The heart size is normal. The pulmonary vascularity is unremarkable. The lungs are clear. No infiltrate, effusion or pneumothorax is detected. IMPRESSION: No acute cardiopulmonary process is detected. Dictated on workstation # [id number] Dict: 12/30/211704 Trans: 12/30/211706 [id number] Interpreted by: SHWETHA JAIMES MD Electronically signed by: Departure Impression Primary Impression: Influenza A Disposition: 01 HOME, SELF-CARE Condition: Stable Departure-Patient Inst. Decision time for Depature: 17:59 Referrals: ALESSANDRO OLSON APRN (PCP) Primary Care Physician Patient Instructions: Flu, Adult ED Add. Discharge Instructions: You do unfortunately have influenza A. I suspect you will have a high fever for 3 to 4 days. You likely will start feeling better within the week. Take ibuprofen and/or Tylenol as needed for fever or body aches. Be sure to be attempting to drink fluids as much as possible. Work/School Note: Work Release Form Date Seen in the Emergency Department: Dec 30, 2021 Return to Work: Jan 02, 2022 Restrictions: Return-No Fever (24hrs), Return-No Vomiting(24hrs) LIZETH SPENCER MD Dec 30, 2021 16:48
[2021-12-30 16:54] LABS: BASOPHILS % (AUTO) 1 % (0-10); EOSINOPHILS % (AUTO) 0 % (0-10); HEMATOCRIT 40 % (35-52); HEMOGLOBIN 13.8 g/dL (11.5-16.0); LYMPHOCYTES # (AUTO) 0.4 10^3/uL (1.0-4.0); LYMPHOCYTES % (AUTO) 5 % (12-44); MEAN CORPUSCULAR HEMOGLOBIN 30 pg (25-34); MEAN CORPUSCULAR HGB CONC 35 g/dL (32-36); MEAN CORPUSCULAR VOLUME 86 fL (80-99); MEAN PLATELET VOLUME 10.5 fL (9.0-12.2); MONOCYTES # (AUTO) 0.5 10^3/uL (0.0-1.0); MONOCYTES % (AUTO) 6 % (0-12); NEUTROPHILS # (AUTO) 7.5 10^3/uL (1.8-7.8); NEUTROPHILS % (AUTO) 88 % (42-75); PLATELET COUNT 292 10^3/uL (130-400); WHITE BLOOD COUNT 8.6 10^3/uL (4.3-11.0)
[2021-12-30 17:08] LABS: ALBUMIN 4.3 GM/DL (3.2-4.5); CHLORIDE 107 MMOL/L (98-107); POTASSIUM 3.6 MMOL/L (3.6-5.0)
--- NOTE | 2021-12-30 17:08 | Diagnostic Imaging Report ---
INDICATION: Fever and sore throat as well as cough. TIME OF EXAM: 4:53 p.m. No prior studies are available for comparison. FINDINGS: The heart size is normal. The pulmonary vascularity is unremarkable. The lungs are clear. No infiltrate, effusion or pneumothorax is detected. IMPRESSION: No acute cardiopulmonary process is detected. Dictated by: Dictated on workstation # [id number]
[2021-12-30 17:09] LABS: SODIUM 138 MMOL/L (135-145)
[2021-12-30 17:10] LABS: CALCIUM 9.3 MG/DL (8.5-10.1)
[2021-12-30 17:11] LABS: GLUCOSE 101 MG/DL (70-105); TOTAL PROTEIN 7.5 GM/DL (6.4-8.2)
[2021-12-30 17:12] LABS: CARBON DIOXIDE 20 MMOL/L (21-32)
[2021-12-30 17:13] LABS: BILIRUBIN,TOTAL 0.5 MG/DL (0.1-1.0)
[2021-12-30 17:14] LABS: ALKALINE PHOSPHATASE 75 U/L (40-136)
[2021-12-30 17:15] LABS: CREATININE SERUM 0.76 MG/DL (0.60-1.30); GFR ESTIMATED 104
[2021-12-30 17:16] LABS: BUN/CREATININE RATIO 11; EOSINOPHILS % (MANUAL) 1 %; LYMPHOCYTES % (MANUAL) 4 %; MONOCYTES % (MANUAL) 9 %; NEUTROPHILS % (MANUAL) 86 %; RBC MORPH NORMAL
[2021-12-30 17:17] LABS: ALANINE AMINOTRANSFERASE 25 U/L (0-55)
[2021-12-30 18:30] VITALS: BP 117/76
== END 2021-12-30 18:32 | disposition home or self-care (01) ==
LOC: EDUNIT# 16:26 → ER 16:29
DX: J10.1 Influenza due to other identified influenza virus with other respiratory manifestations (principal); Z28.310 Unvaccinated for COVID-19; Z20.822 Contact with and (suspected) exposure to COVID-19
CPT/HCPCS: 36415; 71045; 80053; 84484; 85007; 85027; 87636; 93005

== ENCOUNTER → 2022-06-11 | Outpatient (CLI) | payer MEDICAID ==
--- NOTE | 2022-06-11 15:30 | Diagnostic Imaging Report ---
CLINICAL INDICATION: Patient with back pain. EXAM: MRI of the lumbar spine performed without IV contrast. Sequences include sagittal T2, sagittal T1, sagittal T2 fat-sat, and axial T2. COMPARISON: MRI of the lumbar spine without contrast dated 10/02/2020. FINDINGS: There are interval postoperative changes to the lower lumbar spine with L5 laminectomy changes with the appearance of microdiscectomy. There is no paraspinal fluid collection. There is no acute lumbar spine fracture or dislocation. There is stable chronic compression deformity involving the L5 vertebra. The visualized portions of the distal thoracic spinal cord, conus medullaris, and cauda equina nerve roots are unremarkable. The conus medullaris tip is seen at the lower L1 vertebral body level. L1-L2, L2-L3, L3-L4: Unremarkable. L4-L5: Stable minimal disk bulging posteriorly and into the right foraminal region. Stable mild right neural foramen narrowing. There is no significant central canal or left neural foramen narrowing. L5-S1: There are interval postoperative changes with resection of the previously seen right paracentral disk herniation. There is residual minimal disk bulging posteriorly. There is stable disk herniation component in the right foraminal region causing moderate right neural foramen narrowing. There is no significant left neural foramen narrowing. There is no significant central canal narrowing. IMPRESSION: 1: There are interval postoperative changes with L5 laminectomy and microdiscectomy. There is interval decreased size of the previously seen posterior disk herniation with residual minimal disk bulge remaining. There is stable disk herniation in the right foraminal region causing moderate right neural foramen narrowing. 2: The remainder of the lumbar spine findings are stable and described above. Dictated by: Dictated on workstation # [id number]
== END ==
LOC: RAD 14:45
PROVIDERS: ATTEND Anesthesiology Pain Medicine
DX: M48.061 Spinal stenosis, lumbar region without neurogenic claudication (principal); M51.26 Other intervertebral disc displacement, lumbar region; M43.9 Deforming dorsopathy, unspecified
CPT/HCPCS: 72148

== ENCOUNTER 2022-07-06 12:44 | Emergency (ER) | payer MEDICAID ==
[~2022-07-06] VITALS: Ht 147.3 cm; Wt 70.4 kg
[2022-07-06] MEDS ORDERED: KETOROLAC 30 MG/ML VIAL IM ONE (14:00)
[2022-07-06] MEDS ORDERED: ORPHENADRINE 60 MG/2 ML (NORFLEX) AMP (ED ONLY) IM ONE (14:00)
--- NOTE | 2022-07-06 14:00 | ED Back Pain ---
General Chief Complaint: Back Problems Stated Complaint: UPPER BACK PAIN Nursing Triage Note: PT STATES SHE TURNED AN FELT A POP IN HER UPPER RIGHT BACK ABOUT 30 MINTUES AGO AND HAS INCREASED PAIN AND IS UNABLE TO TURN NOW Source of Information: Patient Exam Limitations: No Limitations History of Present Illness Date Seen by Provider: July 06, 2022 Time Seen by Provider: 13:58 Initial Comments Patient is a 37-year-old female who presents to the ED with right-sided mid back pain. This occurred around 30 minutes ago. She states she twisted and turned and felt a sharp pain in her back. She states yesterday she was kayaking. She denies any specific injury. She states that the time she was twisting and turning to the right and felt this pain. Pain feels sharp. Initially was having difficulty breathing. Breathing has improved. Pain with any type of movement of the right shoulder. Attempted to stretch with some improvement. Denies take anything for pain. Patient denies chest pain, cough, vomit, diarrhea, abdominal pain Allergies and Home Medications Allergies Coded Allergies: Penicillins (Verified Allergy, Unknown, 09/20/16) Patient Home Medication List Home Medication List Reviewed: Yes Cyclobenzaprine HCl (Cyclobenzaprine HCl) 10 Mg Tablet, 10 MG PO TID Prescribed by: LAM ARRIAZA on 07/06/22 1402 Naproxen (Naproxen) 500 Mg Tablet, 500 MG PO Q12H Prescribed by: LAM ARRIAZA on 07/06/22 1402 Review of Systems Constitutional: No chills, No diaphoresis, No fever, No malaise, No weakness EENTM: No hearing loss, No ear pain, No blurred vision, No double vision Respiratory: No cough, No dyspnea on exertion Cardiovascular: No chest pain, No edema Gastrointestinal: No abdominal pain, No diarrhea, No nausea Genitourinary: No decreased output, No discharge Musculoskeletal: back pain; No joint pain Skin: No change in color, No change in hair/nails All Other Systems Reviewed Negative Unless Noted: Yes Past Teiafyk-Yaepbw-Zsemej Hx Patient Social History Substance use?: No Alcohol Use?: No Seasonal Allergies Seasonal Allergies: No Past Medical History Surgery/Hospitalization HX: RIGHT AND LEFT ARM REPAIR, FACIAL SURGERY Surgeries: Yes (OVARY REMOVED) Orthopedic Respiratory: No Cardiac: No Neurological: No Genitourinary: No Gastrointestinal: No Musculoskeletal: No Endocrine: No HEENT: No Cancer: No Family Medical History No Pertinent Family Hx Physical Exam Vital Signs Vital Signs - First Documented 07/06/22 12:55 Temp 36.2 Pulse 90 Resp 20 B/P (MAP) 125/81 (96) Pulse Ox 95 Capillary Refill : Height, Weight, BMI Height: 4'10.00" Weight: 135lbs. oz. 61.900319fu; 32.00 BMI Method:Stated General Appearance: No Apparent Distress, WD/WN HEENT: PERRL/EOMI, TMs Normal, Normal ENT Inspection, Pharynx Normal Neck: Full Range of Motion, Normal Inspection, Non Tender, Supple Cardiovascular: Regular Rate, Rhythm, No Edema, No Gallop, No Murmur Respiratory: Chest Non Tender, Lungs Clear, Normal Breath Sounds, No Accessory Muscle Use, No Respiratory Distress Gastrointestinal: Normal Bowel Sounds, No Organomegaly, No Pulsatile Mass, Non Tender Progress/Results/Core Measures Results/Orders My Orders Orders - LIZETH STACK Ketorolac Injection (Toradol Injection) (07/06/22 14:00) Orphenadrine Inj (Ed Only) (Norflex Inje (07/06/22 14:00) Medications Given in ED Current Medications Medications Dose Ordered Sig/Lotus Route Start Time Stop Time Status Last Admin Dose Admin Ketorolac Tromethamine 30 mg ONCE ONCE IM 07/06/22 14:00 07/06/22 14:01 DC 07/06/22 14:04 30 MG Orphenadrine Citrate 60 mg ONCE ONCE IM 07/06/22 14:00 07/06/22 14:01 DC 07/06/22 14:04 60 MG Vital Signs/I&O 07/06/22 07/06/22 12:55 14:20 Temp 36.2 Pulse 90 90 Resp 20 20 B/P (MAP) 125/81 (96) 120/90 Pulse Ox 95 95 2 Blood Pressure Mean: 96 Departure Communication (PCP) Reviewed previous ER visits, H&P, lab testing. Differential diagnosis, muscle strain, pleurisy, degenerative disc disease. Patient with right-sided thoracic paraspinal muscle tenderness. No bruising or swelling. No thoracic or lumbar midline tenderness. Denies any current chest pain or shortness of breath. Lung sounds clear bilateral. Refused x-ray unlikely pneumothorax with lung sounds throughout. Vital signs stable. Received Toradol and Norflex here. Appears to be muscle strain. Recommend stretching, ice, heat, anti-inflammatories and muscle relaxers. Recommend follow-up with your PCP in 2 to 3 days for reevaluation. If any worsening symptoms return back to ED for further evaluation. Impression Primary Impression: Back strain Disposition: HOME, SELF-CARE Condition: Stable Departure-Patient Inst. Decision time for Depature: 14:01 Referrals: [facility] [place] Primary Care Physician Patient Instructions: Muscle Strain (DC) Add. Discharge Instructions: Recommend muscle relaxers to help with spasming, pain medication for pain. If any worsening symptoms return back to ED All discharge instructions reviewed with patient and/or family. Voiced understanding. Scripts Naproxen (Naproxen) 500 Mg Tablet 500 MG PO Q12H, #20 TAB Prov: LIZETH STACK 07/06/22 Cyclobenzaprine HCl (Cyclobenzaprine HCl) 10 Mg Tablet 10 MG PO TID, #15 TAB Prov: LIZETH STACK 07/06/22 LIZETH STACK July 06, 2022 14:00
[2022-07-06] MEDS ORDERED: CYCL10TA25 PO (14:02)
[2022-07-06] MEDS ORDERED: NAPR-915 PO (14:02)
[2022-07-06 14:20] VITALS: BP 120/90
== END 2022-07-06 14:21 | disposition home or self-care (01) ==
LOC: EDUNIT# 12:44 → ER 12:45
DX: S29.012A Strain of muscle and tendon of back wall of thorax, initial encounter (principal); Z28.310 Unvaccinated for COVID-19; X50.1XXA Overexertion from prolonged static or awkward postures, initial encounter
CPT/HCPCS: 99284